=== PATIENT | male | born 1975 | race Two or more races ===

== ENCOUNTER 2022-04-26 07:44 | Emergency (ER) | payer BC ==
[2022-04-26 09:28] LABS: CORONAVIRUS COVID-19 NAA POSITIVE (NEGATIVE)
[2022-04-26] MEDS ORDERED: HYDROmorphone 1 MG/ML Syringe IM ONE (09:36)
[2022-04-26] MEDS ORDERED: EPINEPHrine 1 MG/ML SDV IM PRN (09:53)
[2022-04-26] MEDS ORDERED: diphenhydrAMINE 50 MG/ML SDV IVPUSH PRN (09:53)
[2022-04-26] MEDS ORDERED: Famotidine 20 MG/2 ML SDV IVPUSH PRN (09:53)
[2022-04-26] MEDS ORDERED: methylPREDNISolone Sodium Succinate 125 MG/2 ML SDV IVPUSH PRN (09:53)
[2022-04-26] MEDS ORDERED: HYDROmorphone 1 MG/ML Syringe IVPUSH ONE (09:54)
[2022-04-26] MEDS ORDERED: Sodium Chloride 0.9% 10 ML Syringe FLUSH SCH (10:00)
[2022-04-26] MEDS ORDERED: Ketorolac 30 MG/ML SDV IVPUSH ONE (11:34)
== END 2022-04-26 12:30 | disposition home or self-care (01) ==
LOC: JD.ED 07:44
DX: U07.1 COVID-19 (principal); I10 Essential (primary) hypertension; Z86.16 Personal history of COVID-19
CPT/HCPCS: 0241U; 36415; 86308; 87651; 96374; 96375; 99283; J1170; J1885; J3490; M0222; Q0222; 99282